=== PATIENT | female | born 1965 | race Caucasian/White ===

== ENCOUNTER 2021-05-13 19:51 | Emergency (ER) | payer MEDICAID, SELFPAY ==
[2021-05-13 19:53] VITALS: BP 187/102; PULSE 105; RESP 20; TEMP 36.9; O2SAT 94; BMI 39.0
--- NOTE | 2021-05-13 21:07 | EX.ED.DYSGE1 ---
HPI History of Present Illness Chief Complaint: Abscess Narrative Narrative: 55-year-old female presenting with what she thinks is a spider bite on her right hip. Is been there for couple of days. She noticed it getting larger. She denies any drainage. She does admit to some surrounding erythema on her right hip. She states that initially was a small spot that she scratched and became worse. She denies any systemic signs or symptoms. No history of MRSA. No history of abscess. PFSH PFSH Home Medications NK 05/13/21 [History Last Taken Unknown] Allergy/AdvReac Type Severity Reaction Status Date / Time No Known Allergies Allergy Verified 05/13/21 19:52 Social History Smoking Status: Former smoker ROS ROS ED Constitutional Constitutional ED: Denies chills, fever(s) or sweats Eyes Eyes: Denies blurry vision or change in vision ENT ENT ED: Denies ear pain or sore throat Cardiovascular Cardiovascular: Denies chest pain, palpitations or racing heartbeat Respiratory/Chest Respiratory/Chest: Denies cough, dyspnea or sputum Gastrointestinal Gastrointestinal: Denies abdominal pain, constipation, diarrhea, nausea or vomiting Genitourinary Genitourinary ED: Denies dysuria, hematuria or urinary frequency Musculoskeletal Musculoskeletal: Denies arthralgias, myalgias or neck pain Integumentary Reports abscess and rash; Denies Abrasions Neurologic Neurologic: Denies headache(s), paresthesias or weakness Psychiatric Psychiatric: Denies anxiety, depression, suicidal ideation or suicidal thoughts Endocrine Endocrinology: Denies polydipsia or polyuria EXAM Physical Exam Const Vital Signs: 05/13/21 19:53 Temperature 98.5 F Temperature Source Temporal Pulse Rate 105 H Respiratory Rate 20 H Blood Pressure 187/102 H Blood Pressure Mean 130 Pulse Ox 94 Oxygen Delivery Method Room Air General Appearance ED: pallor HEENT Reports normocephalic, head/scalp atraumatic and moist mucous membranes Eyes PERRL and EOMs intact bilaterally Resp normal respiratory effort Auscultation: Negative for wheezes Narrative: Deferred Extremity normal to inspection General Extremety ED: Negative for edema or tenderness General Extremity: Negative for edema Neuro oriented x3 and CN's II-XII intact bilaterally Sensorium / Orientation: alert Motor Exam: strength 5/5 throughout Psych mental status grossly normal Attitude: No agitated Skin Skin Narrative: 4 cm area of erythema with central swelling over right hip.. No obvious drainage. Tenderness to palpation locally. No crepitance. General Skin Exam: jaundice and pallor Discharge Plan Triage Chief Complaint: Abscess ED Provider: Shailesh Horne Dx/Rx/DC Orders Prescriptions: No Action NK RF: 0 Primary Care Provider: Care Physician,No Primary
[2021-05-13] MEDS: Clindamycin HCl 150 MG Capsule 450 MG PO (22:51)
[2021-05-13] MEDS: Lidocaine 1% /Epi 1:100 (50ml) 50 ML VIAL 30 ML INFILT (22:51)
== END 2021-05-13 23:02 | disposition home or self-care (01) ==
PROVIDERS: Emergency Provider Student in an Organized Health Care Education/Training Program
DX: L03.115 Cellulitis of right lower limb (principal); Z87.891 Personal history of nicotine dependence
CPT/HCPCS: 99283